=== PATIENT | male | born 1980 | race African-American/Black ===

== ENCOUNTER 2017-08-25 15:26 | Emergency (ER) | payer MEDICAID ==
[~2017-08-25] VITALS: Ht 193 cm; Wt 106.6 kg
[2017-08-25 16:33] LABS: Basophils # (auto) 0.1 uL; Eosinophils # (auto) 0.2 uL; Eosinophils % (auto) 2.5 % (0.0-7.0); Hematocrit 44.5 % (41.0-53.0); Hemoglobin 15.1 g/dL (13.5-17.5); Lymphocytes # (auto) 2.2 uL; Lymphocytes % (auto) 22.5 % (10.0-50.0); Mean Corpuscular Hemoglobin 31.8 pg (28.0-32.0); Mean Corpuscular Hgb Conc. 33.8 g/dL (32.0-36.0); Mean Corpuscular Volume 94.1 fL (80.0-100.0); Mean Platelet Volume 6.6 fL (6.9-10.8); Monocytes # (auto) 0.6 uL; Monocytes % (auto) 6.1 % (0.0-12.0); Neutrophils # (auto) 6.6 uL; Neutrophils % (auto) 67.9 % (37.0-80.0); Nucleated Red Blood Cells % 0.2 %; Platelet Count (auto) 204 10^3/uL (140-450); Red Cell Distribution Width 13.2 % (11.8-14.3); White Blood Cell 9.8 10^3/uL (4.4-10.8)
[2017-08-25] MEDS ORDERED: ONDANSETRON HCL 4 MG/2 ML VIAL IV ONE (16:45)
[2017-08-25] MEDS ORDERED: MORPHINE SULF INJ 2 MG/ML SYRINGE 1ML IV ONE (16:45)
[2017-08-25 16:47] LABS: INR 0.89 (0.9-1.15); Partial Thromboplastin Time 26.2 sec (22.64-33.71); Prothrombin Time 9.7 sec (9.37-12.3)
[2017-08-25 16:50] LABS: BUN/Creatinine Ratio 13.8; Calcium 8.8 mg/dL (8.5-10.1); Potassium 4.1 mmol/L (3.5-5.1)
[2017-08-25 17:00] LABS: Bilirubin, Total 0.3 mg/dL (0.2-1.0); Total Protein 7.3 g/dL (6.4-8.2)
[2017-08-25] MEDS ORDERED: WARFARIN SODIUM 5 MG TAB PO ONE (17:00)
[2017-08-25] MEDS ORDERED: ENOXAPARIN SOD 100 MG/1 ML SYRINGE SC ONE (17:00)
[2017-08-25] MEDS ORDERED: ENOXAPARIN SOD 30 MG/0.3 ML SYRINGE ONE (17:05)
[2017-08-25 19:21] VITALS: BP 134/78
== END 2017-08-25 18:45 | disposition home or self-care (01) ==
LOC: ER 15:26
DX: I82.501 Chronic embolism and thrombosis of unspecified deep veins of right lower extremity (principal); J44.9 Chronic obstructive pulmonary disease, unspecified; E78.5 Hyperlipidemia, unspecified; F17.210 Nicotine dependence, cigarettes, uncomplicated; F12.10 Cannabis abuse, uncomplicated; Z76.0 Encounter for issue of repeat prescription
CPT/HCPCS: 36415; 71020; 80053; 85025; 85379; 85610; 85730; 93005; 93971; 94761; 96372; 96374; 96375; 99285; J1650; J2270; J2405

== ENCOUNTER 2017-09-27 20:35 | Emergency (ER) | payer MEDICAID ==
[~2017-09-27] VITALS: Ht 193 cm; Wt 106.6 kg
[2017-09-27 22:44] LABS: Basophils # (auto) 0.1 uL; Basophils % (auto) 0.7 % (0.0-2.0); Eosinophils # (auto) 0.2 uL; Eosinophils % (auto) 2.5 % (0.0-7.0); Hematocrit 43.4 % (41.0-53.0); Hemoglobin 14.7 g/dL (13.5-17.5); Lymphocytes # (auto) 2.8 uL; Lymphocytes % (auto) 32.1 % (10.0-50.0); Mean Corpuscular Hemoglobin 30.9 pg (28.0-32.0); Mean Corpuscular Hgb Conc. 33.8 g/dL (32.0-36.0); Mean Corpuscular Volume 91.5 fL (80.0-100.0); Mean Platelet Volume 6.7 fL (6.9-10.8); Monocytes # (auto) 0.8 uL; Neutrophils # (auto) 4.9 uL; Neutrophils % (auto) 55.7 % (37.0-80.0); Nucleated Red Blood Cells % 0.1 %; Platelet Count (auto) 206 10^3/uL (140-450); Red Cell Distribution Width 13.6 % (11.8-14.3); White Blood Cell 8.7 10^3/uL (4.4-10.8)
[2017-09-27 23:02] LABS: Albumin 3.9 g/dL (3.4-5.0); Alkaline Phosphatase 81 U/L (45-117); Anion Gap 8 (5-15); Aspartate Aminotransferase 12 U/L (15-37); BUN/Creatinine Ratio 16.9; Bilirubin, Total 0.2 mg/dL (0.2-1.0); Blood Urea Nitrogen 13 mg/dL (7-18); Calcium 8.5 mg/dL (8.5-10.1); Carbon Dioxide 22 mmol/L (21-32); Chloride 110 mmol/L (98-107); GFR African American 146 mL/min; GFR Non-African American 121 mL/min; Glucose 91 mg/dL (74-106); Magnesium 2.5 mg/dL (1.6-2.6); Potassium 4.2 mmol/L (3.5-5.1); Sodium 140 mmol/L (136-145); Total Protein 7.4 g/dL (6.4-8.2)
[2017-09-27 23:37] LABS: INR 0.93 (0.9-1.15); Partial Thromboplastin Time 28.3 sec (22.64-33.71); Prothrombin Time 10.1 sec (9.37-12.3)
[2017-09-28] MEDS ORDERED: ENOXAPARIN SOD 100 MG/1 ML SYRINGE SC ONE (00:15)
[2017-09-28 00:30] VITALS: BP 122/72
[2017-09-28] MEDS ORDERED: HYDROmorphone HCL 2 MG/ML VL IV ONE (00:30)
[2017-09-28] MEDS ORDERED: ONDANSETRON HCL 4 MG/2 ML VIAL IV ONE (00:30)
== END 2017-09-28 01:15 | disposition home or self-care (01) ==
LOC: ER 20:41
DX: I82.403 Acute embolism and thrombosis of unspecified deep veins of lower extremity, bilateral (principal); J44.9 Chronic obstructive pulmonary disease, unspecified; E78.5 Hyperlipidemia, unspecified; F17.210 Nicotine dependence, cigarettes, uncomplicated; F12.10 Cannabis abuse, uncomplicated
CPT/HCPCS: 36415; 71010; 80053; 83735; 84484; 85025; 85379; 85610; 85730; 93005; 93970; 96372; 96374; 96375; 99285; J1170; J1650; J2405

== ENCOUNTER 2018-06-16 21:28 | Inpatient (IN) | payer MEDICAID ==
[~2018-06-16] VITALS: Ht 193 cm; Wt 113.0 kg
[2018-06-16 22:16] LABS: Basophils # (auto) 0.1 uL; Basophils % (auto) 0.5 % (0.0-2.0); Eosinophils # (auto) 0.1 uL; Eosinophils % (auto) 0.6 % (0.0-7.0); Hematocrit 46.4 % (41.0-53.0); Lymphocytes % (auto) 7.2 % (10.0-50.0); Mean Corpuscular Hemoglobin 30.7 pg (28.0-32.0); Mean Corpuscular Hgb Conc. 34.4 g/dL (32.0-36.0); Mean Corpuscular Volume 89.3 fL (80.0-100.0); Monocytes # (auto) 1.6 uL; Neutrophils # (auto) 10.8 uL; Neutrophils % (auto) 79.7 % (37.0-80.0); Nucleated Red Blood Cells % 0.1 %; Platelet Count (auto) 239 10^3/uL (140-450); Red Cell Distribution Width 13.7 % (11.8-14.3); White Blood Cell 13.5 10^3/uL (4.4-10.8)
[2018-06-16 22:31] LABS: INR 0.92 (0.9-1.15); Partial Thromboplastin Time 34.1 sec (23.78-33.04); Prothrombin Time 9.9 sec (9.27-12.13)
[2018-06-16 22:34] LABS: Alanine Aminotransferase 29 U/L (16-61); Albumin 3.6 g/dL (3.4-5.0); Anion Gap 12 (5-15); Aspartate Aminotransferase 21 U/L (15-37); BUN/Creatinine Ratio 9.1; Blood Urea Nitrogen 11 mg/dL (7-18); Calcium 8.7 mg/dL (8.5-10.1); Carbon Dioxide 22 mmol/L (21-32); Chloride 101 mmol/L (98-107); GFR African American 86 mL/min; GFR Non-African American 71 mL/min; Glucose 99 mg/dL (74-106); Potassium 3.8 mmol/L (3.5-5.1); Sodium 135 mmol/L (136-145)
[2018-06-16 22:38] LABS: Alkaline Phosphatase 120 U/L (45-117); Bilirubin, Total 0.5 mg/dL (0.2-1.0); Total Protein 8.5 g/dL (6.4-8.2)
[2018-06-16 22:40] LABS: Urine Bacteria NONE SEEN /hpf (None Seen); Urine Blood Negative /uL (Negative); Urine Mucus MODERATE (None Seen); Urine Specific Gravity 1.036 (1.001-1.035); Urine WBC 3 /hpf (0 - 3)
[2018-06-17] MEDS ORDERED: SODIUM CHLORIDE 0.9% 1,000 ML IV ONE (00:15)
[2018-06-17] MEDS ORDERED: metroNIDAZOLE 500MG/100ML 100 ML IV ONE (00:15)
[2018-06-17] MEDS ORDERED: ONDANSETRON HCL 4 MG/2 ML VIAL IV ONE (00:15)
[2018-06-17] MEDS ORDERED: HYDROmorphone HCL 2 MG/ML VL IV ONE (00:15)
[2018-06-17] MEDS ORDERED: ACETAMINOPHEN 325 MG TAB PO PRN (05:15)
[2018-06-17] MEDS ORDERED: TEMAZEPAM 15 MG CAP PO PRN (05:15)
[2018-06-17] MEDS ORDERED: HYDROcodone-ACET 5/325MG TAB PO PRN (05:15)
[2018-06-17] MEDS ORDERED: SODIUM CHLORIDE 0.9% 1,000 ML IV SCH (05:15)
[2018-06-17] MEDS: MORPHINE SULFATE 4 MG/ML SYR/VIAL IV PRN ×3 (05:36→12:10)
[2018-06-17] MEDS: ONDANSETRON HCL 4 MG/2 ML VIAL IV PRN ×2 (05:37→06:27)
[2018-06-17] MEDS: metroNIDAZOLE 500MG/100ML 100 ML IV SCH ×2 (06:33→13:56)
[2018-06-17] MEDS ORDERED: cefTRIAXone 1GM/10ml IVPUSH 10 ML IV SCH (09:00)
[2018-06-17 09:50] VITALS: BP 128/71
[2018-06-17] MEDS ORDERED: PANTOPRAZOLE 40 MG/10 ML VIAL IV SCH (10:00)
[2018-06-17] MEDS ORDERED: WARF10TA PO (12:04)
[2018-06-17 12:38] VITALS: BP 113/77
[2018-06-17] MEDS ORDERED: GOLYTELY 4L KIT PO ONE (14:30)
[2018-06-17 16:33] VITALS: BP 119/73
[2018-06-18] MEDS ORDERED: GOLYTELY 4L KIT PO ONE (06:00)
== END 2018-06-17 16:35 | disposition left against medical advice (07) | DRG 241 ==
LOC: ER 21:28 → OVERFLOW 21:29 → CENTRAL 06-17 08:12
PROVIDERS: ADMIT Nurse Practitioner; ATTEND Internal Medicine
DX: K29.71 Gastritis, unspecified, with bleeding (principal); K76.0 Fatty (change of) liver, not elsewhere classified; J44.9 Chronic obstructive pulmonary disease, unspecified; E78.5 Hyperlipidemia, unspecified; F12.90 Cannabis use, unspecified, uncomplicated; F17.210 Nicotine dependence, cigarettes, uncomplicated; K59.00 Constipation, unspecified; Z79.01 Long term (current) use of anticoagulants; Z86.711 Personal history of pulmonary embolism; Z86.718 Personal history of other venous thrombosis and embolism; Z53.21 Procedure and treatment not carried out due to patient leaving prior to being seen by health care provider; Z72.89 Other problems related to lifestyle; D72.829 Elevated white blood cell count, unspecified
CPT/HCPCS: 36415; 71045; 74018; 74176; 80053; 81001; 84484; 85025; 85610; 85730; 93005; 96361; 96365; 96375; C9113; J0696; J2405; J3490

== ENCOUNTER 2018-06-19 21:17 | Inpatient (IN) | payer MEDICAID, OTHER ==
[~2018-06-19] VITALS: Ht 193 cm; Wt 107.9 kg
[~2018-06-19 21:17] MED LIST: WARF10TA PO
[2018-06-19 22:40] LABS: Basophils # (auto) 0 uL; Basophils % (auto) 0.3 % (0.0-2.0); Eosinophils # (auto) 0.3 uL; Eosinophils % (auto) 2.1 % (0.0-7.0); Hematocrit 44.1 % (41.0-53.0); Hemoglobin 15.2 g/dL (13.5-17.5); Lymphocytes # (auto) 1.9 uL; Lymphocytes % (auto) 12.8 % (10.0-50.0); Mean Corpuscular Hemoglobin 30.7 pg (28.0-32.0); Mean Corpuscular Hgb Conc. 34.5 g/dL (32.0-36.0); Mean Corpuscular Volume 88.9 fL (80.0-100.0); Monocytes # (auto) 1.3 uL; Neutrophils # (auto) 11.1 uL; Neutrophils % (auto) 75.8 % (37.0-80.0); Nucleated Red Blood Cells % 0.1 %; Platelet Count (auto) 277 10^3/uL (140-450); Red Blood Cells 4.96 10^6/uL (4.5-5.90); Red Cell Distribution Width 13.9 % (11.8-14.3); White Blood Cell 14.6 10^3/uL (4.4-10.8)
[2018-06-19 22:53] LABS: Albumin 3.4 g/dL (3.4-5.0); Anion Gap 10 (5-15); BUN/Creatinine Ratio 10.1; Blood Urea Nitrogen 9 mg/dL (7-18); Calcium 8.6 mg/dL (8.5-10.1); Carbon Dioxide 22 mmol/L (21-32); Chloride 107 mmol/L (98-107); GFR African American 123 mL/min; GFR Non-African American 102 mL/min; Glucose 87 mg/dL (74-106); Magnesium 2.4 mg/dL (1.6-2.6); Potassium 3.7 mmol/L (3.5-5.1); Sodium 139 mmol/L (136-145)
[2018-06-19 22:59] LABS: Alanine Aminotransferase 33 U/L (16-61); Alkaline Phosphatase 119 U/L (45-117); Aspartate Aminotransferase 18 U/L (15-37); Bilirubin, Total 0.3 mg/dL (0.2-1.0); INR 0.93 (0.9-1.15); Partial Thromboplastin Time 30.4 sec (23.78-33.04)
[2018-06-20] MEDS ORDERED: SODIUM CHLORIDE 0.9% 1,000 ML IV ONE ×2 (08:34→17:15)
[2018-06-20] MEDS ORDERED: IOHEXOL 300 MG/ML 100ML BOTTLE IJ ONE (08:41)
[2018-06-20] MEDS ORDERED: NALBUPHINE HCL 10 MG/1ml INJECTION IV ONE ×2 (08:45→16:45)
[2018-06-20] MEDS: PROMETHAZINE HCL 25 MG/ML 1ML IV PRN ×2 (09:17→17:03)
[2018-06-20 14:01] LABS: Urine Bacteria NONE SEEN /hpf (None Seen); Urine Blood Negative /uL (Negative); Urine WBC 1 /hpf (0 - 3)
[2018-06-20 14:08] LABS: Urine Specific Gravity 1.001 (1.001-1.035)
[2018-06-20] MEDS ORDERED: SODIUM CHLORIDE 0.9% 1,000 ML IV SCH (17:01)
[2018-06-20] MEDS ORDERED: cefTRIAXone 1GM/10ml IVPUSH 10 ML IV ONE (17:15)
[2018-06-20] MEDS ORDERED: PANTOPRAZOLE 40 MG/10 ML VIAL IV ONE (17:15)
[2018-06-20 18:42] LABS: Hematocrit 41.9 % (41.0-53.0); Hemoglobin 14.1 g/dL (13.5-17.5)
[2018-06-21] MEDS ORDERED: NALBUPHINE HCL 10 MG/1ml INJECTION IV ONE (00:15)
[2018-06-21] MEDS: SODIUM CHLORIDE 0.9% 1,000 ML IV SCH ×4 (00:16→20:16)
[2018-06-21] MEDS ORDERED: MORPHINE SULF INJ 2 MG/ML SYRINGE 1ML IV PRN (00:30)
[2018-06-21] MEDS ORDERED: TEMAZEPAM 15 MG CAP PO PRN (00:30)
[2018-06-21] MEDS ORDERED: ACETAMINOPHEN 500 MG TAB PO PRN (00:30)
[2018-06-21 00:51] LABS: Hematocrit 45.2 % (41.0-53.0); Hemoglobin 14.9 g/dL (13.5-17.5)
[2018-06-21] MEDS: metroNIDAZOLE 500MG/100ML 100 ML IV SCH ×3 (03:07→21:41)
[2018-06-21 05:00] VITALS: BP 115/70
[2018-06-21 06:08] LABS: Basophils # (auto) 0 uL; Basophils % (auto) 0.5 % (0.0-2.0); Eosinophils # (auto) 0.3 uL; Eosinophils % (auto) 2.7 % (0.0-7.0); Hematocrit 40.1 % (41.0-53.0); Hemoglobin 13.6 g/dL (13.5-17.5); Lymphocytes # (auto) 1.7 uL; Lymphocytes % (auto) 17.6 % (10.0-50.0); Mean Corpuscular Hemoglobin 30.3 pg (28.0-32.0); Mean Corpuscular Hgb Conc. 33.9 g/dL (32.0-36.0); Mean Corpuscular Volume 89.4 fL (80.0-100.0); Monocytes # (auto) 0.9 uL; Monocytes % (auto) 9.5 % (0.0-12.0); Neutrophils # (auto) 6.9 uL; Neutrophils % (auto) 69.7 % (37.0-80.0); Platelet Count (auto) 233 10^3/uL (140-450); Red Blood Cells 4.48 10^6/uL (4.5-5.90); White Blood Cell 9.9 10^3/uL (4.4-10.8)
[2018-06-21 06:28] LABS: BUN/Creatinine Ratio 12.5; Potassium 3.6 mmol/L (3.5-5.1)
[2018-06-21 06:29] LABS: Calcium 8.3 mg/dL (8.5-10.1)
[2018-06-21] MEDS: HYDROcodone-ACET 5/325MG TAB PO PRN ×2 (08:37→21:40)
[2018-06-21 08:44] LABS: INR 0.98 (0.9-1.15); Partial Thromboplastin Time 29.9 sec (23.78-33.04); Prothrombin Time 10.5 sec (9.27-12.13)
[2018-06-21 09:00] VITALS: BP 112/72
[2018-06-21] MEDS: cefTRIAXone 1GM/10ml IVPUSH 10 ML IV SCH (09:50)
[2018-06-21] MEDS: PANTOPRAZOLE 40 MG/10 ML VIAL IV SCH (09:50)
[2018-06-21 13:30] VITALS: BP 115/75
[2018-06-21 17:00] VITALS: BP 118/84
[2018-06-21] MEDS ORDERED: WARFARIN SODIUM 10 MG TAB PO ONE (17:00)
[2018-06-21 19:33] LABS: Amphetamine Screen, Urine NEGATIVE (NEGATIVE); Barbiturate Scree,Urine NEGATIVE (NEGATIVE); Benzodiazephine Screen, Urine NEGATIVE (NEGATIVE); Cannabinoid Screen, Urine POSITIVE (NEGATIVE); Cocaine Screen, Urine NEGATIVE (NEGATIVE); Opiate Scree,Urine POSITIVE (NEGATIVE); Phencyclidine Screen, Urine NEGATIVE (NEGATIVE)
[2018-06-21 22:00] VITALS: BP_SYST 122; BP_SYST 124; BP_DIAS 67; BP_DIAS 76
[2018-06-22] MEDS: SODIUM CHLORIDE 0.9% 1,000 ML IV SCH ×3 (02:56→16:30)
[2018-06-22] MEDS: metroNIDAZOLE 500MG/100ML 100 ML IV SCH ×3 (05:23→21:43)
[2018-06-22 05:44] VITALS: BP 120/65
[2018-06-22 08:01] LABS: Albumin 2.9 g/dL (3.4-5.0); BUN/Creatinine Ratio 9.5; Bilirubin, Total 0.3 mg/dL (0.2-1.0); Calcium 8.4 mg/dL (8.5-10.1); Potassium 3.4 mmol/L (3.5-5.1); Total Protein 6.7 g/dL (6.4-8.2)
[2018-06-22 08:02] LABS: Basophils # (auto) 0 uL; Basophils % (auto) 0.4 % (0.0-2.0); Eosinophils # (auto) 0.2 uL; Eosinophils % (auto) 2.1 % (0.0-7.0); Hematocrit 40.3 % (41.0-53.0); Hemoglobin 13.5 g/dL (13.5-17.5); Lymphocytes # (auto) 1.5 uL; Lymphocytes % (auto) 15.4 % (10.0-50.0); Mean Corpuscular Hemoglobin 29.8 pg (28.0-32.0); Mean Corpuscular Hgb Conc. 33.6 g/dL (32.0-36.0); Mean Corpuscular Volume 88.7 fL (80.0-100.0); Monocytes # (auto) 0.8 uL; Monocytes % (auto) 8.5 % (0.0-12.0); Neutrophils # (auto) 7.3 uL; Neutrophils % (auto) 73.6 % (37.0-80.0); Nucleated Red Blood Cells % 0.1 %; Platelet Count (auto) 263 10^3/uL (140-450); Red Blood Cells 4.54 10^6/uL (4.5-5.90); Red Cell Distribution Width 13.8 % (11.8-14.3); White Blood Cell 9.9 10^3/uL (4.4-10.8)
[2018-06-22 08:44] VITALS: BP 148/94
[2018-06-22 09:11] LABS: Amylase 48 U/L (25-115); Lipase 992 U/L (73-393)
[2018-06-22] MEDS: cefTRIAXone 1GM/10ml IVPUSH 10 ML IV SCH (10:40)
[2018-06-22] MEDS: PANTOPRAZOLE 40 MG/10 ML VIAL IV SCH (10:41)
[2018-06-22 13:00] VITALS: BP 132/78
[2018-06-22] MEDS ORDERED: GOLYTELY 4L KIT PO ONE (16:30)
[2018-06-22 17:00] VITALS: BP 128/76
[2018-06-22 20:00] VITALS: BP 127/88
[2018-06-22] MEDS: HYDROcodone-ACET 5/325MG TAB PO PRN (21:43)
[2018-06-22 22:00] VITALS: BP 127/88
[2018-06-22] MEDS ORDERED: PANTOPRAZOLE 40 MG/10 ML VIAL IV SCH (22:00)
[2018-06-23] MEDS: SODIUM CHLORIDE 0.9% 1,000 ML IV SCH ×2 (02:45→12:30)
[2018-06-23] MEDS: HYDROcodone-ACET 5/325MG TAB PO PRN ×2 (04:03→08:51)
[2018-06-23 05:35] VITALS: BP 120/75
[2018-06-23] MEDS: metroNIDAZOLE 500MG/100ML 100 ML IV SCH ×2 (05:57→14:00)
[2018-06-23] MEDS ORDERED: GOLYTELY 4L KIT PO ONE (06:00)
[2018-06-23] MEDS: cefTRIAXone 1GM/10ml IVPUSH 10 ML IV SCH (08:51)
[2018-06-23 08:53] VITALS: BP 113/72
[2018-06-23] MEDS ORDERED: NALOXONE HCL 0.4 MG/ML VIAL ONE (10:21)
[2018-06-23] MEDS ORDERED: FLUMAZENIL 0.1 MG/ML INJ 10ML MDV IV ONE (10:21)
[2018-06-23] MEDS ORDERED: diphenhdrAMINE HCL 50 MG/1 ML VL ONE (10:22)
[2018-06-23] MEDS ORDERED: LIDOCAINE VISCOUS 2% 15ML UD ONE (10:24)
[2018-06-23] MEDS ORDERED: SODIUM CHLORIDE LOCK 0 ML ONE (10:27)
[2018-06-23] MEDS: fentaNYL CITRATE 100 MCG/2 ML VL ONE ×2 (11:43→11:46)
[2018-06-23] MEDS: MIDAZOLAM HCL 5 MG/ML-1ML VIAL ONE ×2 (11:43→11:46)
[2018-06-23] MEDS ORDERED: SODIUM CHLORIDE LOCK 10 ML ONE (11:50)
[2018-06-23] MEDS ORDERED: fentaNYL CITRATE 100 MCG/2 ML VL ONE ×2 (11:50→12:18)
[2018-06-23] MEDS ORDERED: MIDAZOLAM HCL 5 MG/ML-1ML VIAL ONE (11:50)
[2018-06-23 11:51] VITALS: BP 141/87
[2018-06-23] MEDS ORDERED: KETOROLAC TROMETH 30 MG/ML 1ML VIAL IV ONE (12:15)
[2018-06-23] MEDS ORDERED: MIDAZOLAM HCL 1MG/1ML-2 ML VIAL IV PRN (12:15)
[2018-06-23] MEDS ORDERED: ePHEDrine SULFATE 50 MG/ML AMP IV PRN (12:15)
[2018-06-23] MEDS ORDERED: ONDANSETRON HCL 4 MG/2 ML VIAL IV ONE (12:15)
[2018-06-23] MEDS ORDERED: MORPHINE SULFATE 4 MG/ML SYR/VIAL IV PRN (12:15)
[2018-06-23] MEDS ORDERED: HYDROmorphone HCL 2 MG/ML VL IV PRN (12:15)
[2018-06-23] MEDS ORDERED: LABETALOL HCL 5 MG/ML 4ML SYRINGE IV PRN (12:15)
[2018-06-23] MEDS ORDERED: DEXAMETHASONE SOD PHOS 10MG/1ML VIAL INJ ONE (12:18)
[2018-06-23] MEDS ORDERED: PROPOFOL 10 MG/ML 20 ML IV ONE (12:18)
[2018-06-23] MEDS ORDERED: PANT40T PO (13:48)
[2018-06-23] MEDS ORDERED: MORPHINE SULFATE 4 MG/ML SYR/VIAL IV ONE (14:00)
[2018-06-23 17:07] VITALS: BP 141/87
[2018-06-23 17:41] VITALS: BP 118/74
[2018-06-23] MEDS ORDERED: PANTOPRAZOLE 40 MG TAB PO SCH (22:00)
== END 2018-06-23 17:56 | disposition home or self-care (01) | DRG 241 ==
LOC: ER 21:20 → TELE 21:21 → TELE-CENTR 06-21 01:30
PROVIDERS: ADMIT Nurse Practitioner Family; ATTEND Internal Medicine
PROC: 0DBB8ZX Excision of Ileum, Via Natural or Artificial Opening Endoscopic, Diagnostic (ICD-10-PCS; 2018-06-23)
PROC: 0DBN8ZZ Excision of Sigmoid Colon, Via Natural or Artificial Opening Endoscopic (ICD-10-PCS; 2018-06-23)
PROC: 0DB68ZX Excision of Stomach, Via Natural or Artificial Opening Endoscopic, Diagnostic (ICD-10-PCS; principal; 2018-06-23 11:32)
PROC: 0DBC8ZX Excision of Ileocecal Valve, Via Natural or Artificial Opening Endoscopic, Diagnostic (ICD-10-PCS; 2018-06-23 11:32)
DX: K29.71 Gastritis, unspecified, with bleeding (principal); D68.51 Activated protein C resistance; E11.51 Type 2 diabetes mellitus with diabetic peripheral angiopathy without gangrene; K85.90 Acute pancreatitis without necrosis or infection, unspecified; J43.8 Other emphysema; K56.7 Ileus, unspecified; D12.5 Benign neoplasm of sigmoid colon; D12.2 Benign neoplasm of ascending colon; K51.90 Ulcerative colitis, unspecified, without complications; I71.4 Abdominal aortic aneurysm, without rupture; R07.89 Other chest pain; I72.4 Aneurysm of artery of lower extremity; E78.5 Hyperlipidemia, unspecified; K64.8 Other hemorrhoids; F12.90 Cannabis use, unspecified, uncomplicated; F17.210 Nicotine dependence, cigarettes, uncomplicated; R59.0 Localized enlarged lymph nodes; Z83.2 Family history of diseases of the blood and blood-forming organs and certain disorders involving the immune mechanism; Z83.3 Family history of diabetes mellitus; Z86.711 Personal history of pulmonary embolism; Z86.718 Personal history of other venous thrombosis and embolism; Z91.14 Patient's other noncompliance with medication regimen; Z91.19 Patient's noncompliance with other medical treatment and regimen; Z79.01 Long term (current) use of anticoagulants
CPT/HCPCS: 36415; 43239; 45380; 71045; 74177; 80048; 80053; 80061; 80307; 81001; 82150; 82270; 83690; 83735; 83880; 84484; 85014; 85018; 85025; 85610; 85652; 85730; 86141; 87045; 87081; 87493; 87899; 93005; 93306; 96361; 96374; 96375; 96376; A6257; C9113; J0696; J1100; J2250; J2704; J3490